=== PATIENT | female | born 1975 | race Caucasian/White ===

== ENCOUNTER 2016-06-26 22:17 | Emergency (ER) | payer OTHER ==
[2016-06-26 22:32] VITALS: BP 102/71; PULSE 96; TEMP 98.7; BMI 28.0
--- NOTE | 2016-06-26 22:41 | PDOC ---
History of Present Illness - History of Present Illness Initial Comments: 06/26/16 23:56 Patient is a 40 year old female with significant medical hx of arthritis, sinusitis, and migraines who is presenting to the ED with four days of cold symptoms, nausea, and vomiting. Four days ago the patient reports developing cold symptoms with cough and sore throat. The following day she began having headache, weakness, nausea and vomiting. The patient states that her son had similar symptoms prior to her getting sick. Denies any fever, chills, abdominal pain, dysuria, chest pain, back pain, or shortness of breath. Surgical Hx: Polyp removal PMD: Freedom Guajardo MD <Jana Curry - Last Filed: 06/27/16 00:07> <Vane Wynn - Last Filed: 06/27/16 02:14> - General Chief Complaint: Nausea/Vomiting Stated Complaint: NAUSEA/VOMITING Past History <Jana Curry - Last Filed: 06/27/16 00:07> - Past Medical History Other medical history: arthritis - Psycho/Social/Smoking Cessation Hx Suicidal Ideation: No Smoking History: Never smoked <Vane Wynn - Last Filed: 06/27/16 02:14> - Past Medical History Allergies/Adverse Reactions: Allergies Allergy/AdvReac Type Severity Reaction Status Date / Time Penicillins Allergy Verified 06/26/16 22:30 Home Medications: Ambulatory Orders Oseltamivir Phosphate [Tamiflu] 75 mg PO BID 06/27/16 Review of Systems - Review of Systems Comments:: 06/26/16 23:57 CONSTITUTIONAL: Present: generalized weakness Absent: fever, chills, diaphoresis, malaise, loss of appetite HEENT: Present: throat pain, congestion Absent: rhinorrhea, throat swelling, difficulty swallowing, mouth swelling, ear pain, eye pain, visual changes CARDIOVASCULAR: Absent: chest pain, syncope, palpitations, irregular heart rate, lightheadedness , peripheral edema RESPIRATORY: Present: cough Absent: shortness of breath, dyspnea with exertion, orthopnea, wheezing, stridor , hemoptysis GASTROINTESTINAL: Present: nausea, vomiting Absent: abdominal pain, abdominal distension, diarrhea, constipation, melena, hematochezia GENITOURINARY: Absent: dysuria, frequency, urgency, hesitancy, hematuria, flank pain, genital pain MUSCULOSKELETAL: Absent: myalgia, arthralgia, joint swelling SKIN: Absent: rash, itching, pallor HEMATOLOGIC/IMMUNOLOGIC: Absent: easy bleeding, easy bruising, lymphadenopathy, frequent infections ENDOCRINE: Absent: unexplained weight gain, unexplained weight loss, heat intolerance, cold intolerance NEUROLOGIC: Present: headache Absent: focal weakness or paresthesia, dizziness, unsteady gait, seizure, mental status changes, bladder or bowel incontinence. PSYCHIATRIC: Absent: anxiety, depression, suicidal or homicidal ideation, hallucinations <PatricioJana - Last Filed: 06/27/16 00:07> *Physical Exam - Vital Signs Last Vital Signs Temp Pulse Resp BP Pulse Ox 98.7 F 96 H 18 102/71 96 06/26/16 22:30 06/26/16 22:30 06/26/16 22:30 06/26/16 22:30 06/26/16 22:30 - Physical Exam Comments: 06/26/16 23:58 GENERAL: Well developed, well nourished. Awake and alert. No acute distress. HEENT: Normocephalic, atraumatic. PERRLA, EOMI. No conjunctival pallor. Sclera are non- icteric. Dry mucous membranes. Erythematous throat. NECK: Supple. Full ROM. No JVD. Carotid pulses 2+ and symmetric, without bruits. No thyromegaly. No lymphadenopathy. CARDIOVASCULAR: Regular rate and rhythm. No murmurs, rubs, or gallops. Distal pulses are 2+ and symmetric. PULMONARY: No evidence of respiratory distress. Lungs clear to auscultation bilaterally. No wheezing, rales or rhonchi. ABDOMINAL: Soft. Non-tender. Non-distended. No rebound or guarding. No organomegaly. Normoactive bowel sounds. MUSCULOSKELETAL: Normal range of motion at all joints. No bony deformities or tenderness. No CVA tenderness. EXTREMITIES: No cyanosis. No clubbing. No edema. No calf tenderness. SKIN: Warm and dry. Normal capillary refill. No rashes. No jaundice. NEUROLOGICAL: Alert, awake, appropriate. Cranial nerves 2-12 intact. Normal speech. Gait is normal without ataxia. PSYCHIATRIC: Cooperative. Good eye contact. Appropriate mood and affect. <Jana Curry - Last Filed: 06/27/16 00:07> - Vital Signs Last Vital Signs Temp Pulse Resp BP Pulse Ox 98.7 F 96 H 18 102/71 96 06/26/16 22:30 06/26/16 22:30 06/26/16 22:30 06/26/16 22:30 06/26/16 22:30 <Vane Wynn - Last Filed: 06/27/16 02:14> ED Treatment Course - LABORATORY CBC & Chemistry Diagram: 06/26/16 23:45 06/26/16 23:45 <Jana Curry - Last Filed: 06/27/16 00:07> - LABORATORY CBC & Chemistry Diagram: 06/26/16 23:45 06/26/16 23:45 <Vane Wynn - Last Filed: 06/27/16 02:14> Medical Decision Making - Medical Decision Making 06/27/16 02:12 40-year-old female has had an illness for several days with cough, sore throat, nausea and vomiting. She has no abdominal pain Throat culture was done and was negative for strep CBC and chemistries were done and all were unremarkable w sl bump in glucose 108 Urinalysis is negative Negative test Past medical history significant for migraines for which she takes Excedrin She received IV fluids, ketorolac and Zofran and her symptoms resolved Patient discharged home Impression viral illness 06/27/16 02:14 <Vane Wynn - Last Filed: 06/27/16 02:14> *DC/Admit/Observation/Transfer - Attestations Scribe Attestion: 06/26/16 23:59 Documentation prepared by Jana Curry, acting as medical driver for Vane Wynn MD. <Jana Curry - Last Filed: 06/27/16 00:07> <Vane Wynn - Last Filed: 06/27/16 02:14> Diagnosis at time of Disposition: Viral illness Nausea & vomiting Qualifiers: Vomiting type: unspecified Vomiting Intractability: non-intractable Qualified Code(s): R11.2 - Nausea with vomiting, unspecified - Discharge Dispostion Disposition: HOME Condition at time of disposition: Stable - Referrals Referrals: Freedom Guajardo [Primary Care Provider] - - Patient Instructions Printed Discharge Instructions: DI for Gastritis Additional Instructions: please take your excedrin if needed for your migraine rest drink fluids return if you have any persistent or worsening symptoms
[2016-06-26] MEDS ORDERED: SODIUM CHLORIDE 1,000 ML IV STA (23:32)
[2016-06-26] MEDS ORDERED: ONDANSETRON 4 MG/2 ML VIAL IVPUSH ONE (23:32)
[2016-06-26] MEDS ORDERED: ONDANSETRON 4 MG/2 ML VIAL ONE (23:41)
[2016-06-26 23:59] LABS: BASOPHIL 0.2 % (0-2.0); EOSINOPHIL 0.7 % (0-4.5); MCH 28.8 pg (25.7-33.7); MCHC 33.5 g/dl (32.0-36.0); MEAN CELL VOLUME 85.9 fl (80-96); MEAN PLT VOLUME 8.8 fl (7.5-11.1); NEUTROPHILS 80.8 % (42.8-82.8); PLATELET COUNT 249 K/MM3 (134-434); RDW 12.7 % (11.6-15.6); WHITE BLOOD COUNT 9.1 K/mm3 (4.0-10.0)
[2016-06-27] LABS: URINE APPEARANCE CLEAR; URINE BILIRUBIN NEGATIVE (NEGATIVE); URINE BLOOD NEGATIVE (NEGATIVE); URINE COLOR LTYELLOW; URINE GLUCOSE (UA) NEGATIVE (NEGATIVE); URINE KETONE NEGATIVE (NEGATIVE); URINE LEUK ESTERASE NEGATIVE (NEGATIVE); URINE NITRITE NEGATIVE (NEGATIVE); URINE PROTEIN NEGATIVE (NEGATIVE); URINE UROBILINOGEN NEGATIVE E.U./dl (0.2-1.0)
[2016-06-27 00:18] LABS: ALBUMIN 3.6 g/dl (3.4-5.0); ALK PHOS 73 U/L (45-117); ANION GAP 13 (8-16); BILIRUBIN,TOTAL 0.4 mg/dL (0.2-1.0); CALCIUM 9.1 mg/dL (8.5-10.1); CO2 30 mmol/L (21-32); CREATININE 0.7 mg/dL (0.55-1.02); GLUCOSE,RANDOM 108 mg/dL (74-106); SGOT/AST 11 U/L (15-37); SGPT/ALT 16 U/L (12-78); TOT PROT 6.7 g/dl (6.4-8.2)
[2016-06-27] MEDS ORDERED: KETOROLAC TROMETHAMINE 30 MG/1 ML VIAL IVPUSH ONE (01:01)
[2016-06-27] MEDS ORDERED: KETOROLAC TROMETHAMINE 30 MG/1 ML VIAL ONE (01:03)
== END 2016-06-27 02:19 | disposition home or self-care (01) ==
LOC: JER 22:17
DX: B34.9 Viral infection, unspecified (principal); G43.909 Migraine, unspecified, not intractable, without status migrainosus; M12.9 Arthropathy, unspecified
CPT/HCPCS: 36415; 80053; 81003; 83690; 84703; 85025; 87070; 87430; 99283-25

== ENCOUNTER 2017-05-12 10:18 | Emergency (ER) | payer OTHER ==
[2017-05-12 10:24] VITALS: TEMP 98.5; BMI 28.0
[2017-05-12] MEDS ORDERED: MAG HYDROX/AL HYDROX/SIMETH 30 ML UNIT-DOSE CUP PO ONE (10:51)
[2017-05-12] MEDS ORDERED: SODIUM CHLORIDE 1,000 ML IV STA (10:51)
[2017-05-12] MEDS ORDERED: FAMOTIDINE IV 20 MG/12 ML VIAL IVPUSH ONE (10:51)
[2017-05-12] MEDS ORDERED: ONDANSETRON 4 MG/2 ML VIAL IVPUSH ONE (10:51)
--- NOTE | 2017-05-12 10:54 | PDOC ---
History of Present Illness - General Chief Complaint: Pain Stated Complaint: ABD PAIN Time Seen by Provider: 05/12/17 10:38 History Source: Patient - History of Present Illness Timing/Duration: reports: intermittent Quality: reports: burning Abdominal Pain Onset Location: reports: epigastric Pain Radiation: reports: no radiation Past History - Past Medical History Allergies/Adverse Reactions: Allergies Allergy/AdvReac Type Severity Reaction Status Date / Time Penicillins Allergy Verified 05/12/17 10:24 Home Medications: Ambulatory Orders Oseltamivir Phosphate [Tamiflu] 75 mg PO BID 06/27/16 Famotidine [Pepcid] 20 mg PO DAILY #14 tablet 05/12/17 Tramadol HCl 50 mg PO Q6H #15 tablet MDD 200 mg 05/12/17 COPD: No Other medical history: arthritis - Suicide/Smoking/Psychosocial Hx Smoking History: Never smoked Review of Systems - Review of Systems Constitutional: No: Chills, Fever Respiratory: No: Shortness of Breath Cardiac (ROS): No: Chest Pain ABD/GI: Yes: Nausea, Vomiting. No: Blood Streaked Bowels, Constipated, Diarrhea , Tarry Stools : No: Dysuria, Flank Pain *Physical Exam - Vital Signs Last Vital Signs Temp Pulse Resp BP Pulse Ox 98.5 F 76 18 111/79 99 05/12/17 10:21 05/12/17 10:21 05/12/17 10:21 05/12/17 10:21 05/12/17 10:21 - Physical Exam General Appearance: Yes: Appropriately Dressed. No: Apparent Distress HEENT: positive: Normal Voice Neck: positive: Supple Respiratory/Chest: positive: Lungs Clear, Normal Breath Sounds. negative: Respiratory Distress Cardiovascular: positive: Regular Rate, S1, S2 Gastrointestinal/Abdominal: positive: Normal Bowel Sounds, Tender (to epigatsrium, NT over RUQ and neg murpheys), Soft. negative: Distended, Guarding , Rebound Musculoskeletal: negative: CVA Tenderness Integumentary: positive: Dry, Warm Neurologic: positive: Fully Oriented, Alert, Normal Mood/Affect ED Treatment Course - LABORATORY CBC & Chemistry Diagram: 05/12/17 11:10 05/12/17 11:10 Medical Decision Making - Medical Decision Making 05/12/17 10:52 41-year-old female, history of RA on prednisone and plaquenil here with epigastric pain. Patient states for the past several days, she has had burning intermittent, epigastric pain worse with food and relieved when she vomits. No hematemesis or coffee-ground emesis. Denies any change in bowel movements, fever or chills. No history of gallstones or kidney stones. States she ate a slice of plain pizza 1 hour prior to onset of symptoms. Denies history of similar symptoms in the past. No excessive ETOH or NSAID use per pt. No CP or SOB See exam Possibly gastritis vs ulcer vs pancreatitis (crista given prednisone use) vs rony , less likely cardiac -GI cocktail -IVF -labs -reassess 05/12/17 12:44 Labs unremarkable. Upon reevaluation, patient continues to complain of epigastric pain, though mildly improved. Will send for ultrasound at this time and continue to manage pain in ED 05/12/17 13:30 US neg. Pain improved and able to tolerate po. Will dc w/ meds and have pt f/u with PMD and GI *DC/Admit/Observation/Transfer Diagnosis at time of Disposition: Epigastric pain - Discharge Dispostion Disposition: HOME Condition at time of disposition: Improved - Prescriptions Prescriptions: Famotidine [Pepcid] 20 mg PO DAILY #14 tablet Tramadol HCl 50 mg PO Q6H #15 tablet MDD 200 mg - Referrals Referrals: Freedom Guajardo [Primary Care Provider] - Italo Hernández MD [Staff Physician] - - Patient Instructions Printed Discharge Instructions: Gastritis Additional Instructions: You may possibly have gastritis, but your workup is not complete. You will need further evaluation by your PMD and a net ui developer for further evaluation. Take medication as prescribed. Return to ER if symptoms worsen - Post Discharge Activity Forms/Work/School Notes: Back to Work
[2017-05-12] MEDS ORDERED: SUCRALFATE 1 GM TABLET (FP) PO ONE (10:55)
[2017-05-12] MEDS ORDERED: SUCRALFATE 1 GM TABLET (FP) ONE (11:12)
[2017-05-12] MEDS ORDERED: ONDANSETRON 4 MG/2 ML VIAL ONE (11:12)
[2017-05-12] MEDS ORDERED: MAG HYDROX/AL HYDROX/SIMETH 30 ML UNIT-DOSE CUP ONE (11:12)
[2017-05-12] MEDS ORDERED: FAMOTIDINE 20 MG/50 ML IVPB 20 MG/50 ML MG IVPB ONE (11:13)
[2017-05-12 11:26] LABS: BASO % 0.7 % (0-2.0); EOS % 1.3 % (0-4.5); HEMATOCRIT 40.8 % (32.4-45.2); LYMPH % 29.6 % (8-40); MCH 29.4 pg (25.7-33.7); MCHC 34.3 g/dl (32.0-36.0); MEAN CELL VOLUME 85.7 fl (80-96); MEAN PLT VOLUME 8.3 fl (7.5-11.1); MONO % 5.6 % (3.8-10.2); NEUT % 62.8 % (42.8-82.8); PLATELET COUNT 281 K/MM3 (134-434); RBC 4.76 M/mm3 (3.60-5.2); RDW 12.6 % (11.6-15.6); WHITE BLOOD COUNT 5.8 K/mm3 (4.0-10.0)
[2017-05-12 11:31] LABS: URINE APPEARANCE CLEAR; URINE BILIRUBIN NEGATIVE (<2.0 mg/dL); URINE BLOOD NEGATIVE (NEGATIVE); URINE COLOR YELLOW; URINE GLUCOSE (UA) NEGATIVE (NEGATIVE); URINE KETONE NEGATIVE (NEGATIVE); URINE LEUK ESTERASE NEGATIVE (NEGATIVE); URINE NITRITE NEGATIVE (NEGATIVE); URINE PROTEIN NEGATIVE (NEGATIVE); URINE UROBILINOGEN NEGATIVE mg/dL (0.2-1.0)
[2017-05-12 11:43] LABS: ALBUMIN 4.1 g/dl (3.4-5.0); ALK PHOS 79 U/L (45-117); ANION GAP 7 (8-16); BILIRUBIN,TOTAL 0.4 mg/dL (0.2-1.0); BLOOD UREA NITROGEN 10 mg/dL (7-18); CALCIUM 8.8 mg/dL (8.5-10.1); CHLORIDE 104 mmol/L (98-107); CO2 28 mmol/L (21-32); CREATININE 0.7 mg/dL (0.55-1.02); GLUCOSE,RANDOM 81 mg/dL (74-106); LIPASE 128 U/L (73-393); POTASSIUM 4.2 mmol/L (3.5-5.1); SGOT/AST 17 U/L (15-37); SGPT/ALT 21 U/L (12-78); SODIUM 139 mmol/L (136-145)
[2017-05-12] MEDS ORDERED: traMADol HCL 50 MG TABLET PO ONE (12:43)
[2017-05-12] MEDS ORDERED: traMADol HCL 50 MG TABLET ONE (12:58)
[2017-05-12 14:28] VITALS: BP 116/76; PULSE 71
== END 2017-05-12 14:29 | disposition home or self-care (01) ==
LOC: JER 10:18
PROC: 3E033GC Introduction of Other Therapeutic Substance into Peripheral Vein, Percutaneous Approach (ICD-10-PCS; principal; 2017-05-12)
DX: R10.13 Epigastric pain (principal); M06.9 Rheumatoid arthritis, unspecified
CPT/HCPCS: 36415; 76705-TC; 80053; 81003; 83690; 84703; 85025; 99282-25; J7030